=== PATIENT | male | born 1970 | race Two or more races ===

== ENCOUNTER 2024-07-21 10:32 | Emergency (ER) | payer MEDICAID, OTHER ==
[~2024-07-21] VITALS: Ht 175.3 cm; Wt 90.0 kg
--- NOTE | 2024-07-21 10:49 | ED.PDOC ---
GI ASSESSMENT HPI Comments 54 y.o male with PMHx of DM and HTN, presents to the ED via EMS for a chief complaint of epigastric pain that presented today at 0400. Patient describes pain as achy, non radiating, constant, and has no modifying factors. Patient denies any nausea, vomiting, diarrhea, fever, chills, or urinary symptoms. EMS report BG of 247 and stable vital signs. Time Seen by MD: 10:44 Reviewed Notes: Nurses Notes, Sfdc Architect Notes, Medications, Allergies Allergies: Coded Allergies: NO KNOWN ALLERGIES (Unverified , 07/21/24) Home Meds Active Scripts Pantoprazole Sodium Sesquihydr (Protonix) 40 Mg Tab, 40 MG PO DAILY, #30 TAB Prov:MARIA EUGENIA BRASWELL MD 07/21/24 Ondansetron Odt 4MG Tab (ZOFRAN PO) 4 Mg Tb, 4 MG PO Q8HP PRN for 5 Days, #15 TAB ODT TAB-DISSOLVE IN MOUTH, THEN SWALLOW Prov:MARIA EUGENIA BRASWELL MD 07/21/24 Information Source: Patient, Emergency Med Personnel Mode of Arrival: EMS Timing: Hours Duration: Since onset Prehospital treatment: Accucheck (247) Quality: Aching Vomitus: None Stool: Normal Severity: Moderate Recent: None Recent Hx of: None Pain Location: Epigastric Modifying Factors: Nothing Associated sign and symptoms: Abdominal Pain Past Medical History PAST MEDICAL HISTORY: DM, HTN Surgical History (Other): right knee replacement Family History Family History: Family hx of DM Social History Smoker: Non-Smoker Alcohol: Occasionally Drugs: Denies Drug Use Lives In: Home Constitutional: denies: chills, diaphoresis, fatigue, fever, malaise, sweats, weakness, others EENTM: denies: blurred vision, double vision, ear bleeding, ear discharge, ear drainage, ear pain, ear ringing, eye pain, eye redness, hearing loss, mouth pain, mouth swelling, nasal discharge, nose bleeding, nose congestion, nose pain, photophobia, tearing, throat pain, throat swelling, voice changes, others Respiratory: denies: cough, hemoptysis, orthopnea, SOB at rest, shortness of breath, SOB with excertion, stridor, wheezing, others Cardiovascular: denies: chest pain, dizzy spells, diaphoresis, Dyspnea on exertion, edema, irregular heart beat, left arm pain, lightheadedness, pal pitations, PND, syncope, others Gastrointestinal: reports: abdominal pain; denies: abdomen distended, blood streaked bowels, constipated, diarrhea, dysphagia, difficulty swallowing, hematemesis, melena, nausea, poor appetite, poor fluid intake, rectal bleeding, rectal pain, vomiting, others Genitourinary: denies: burning, dysuria, flank pain, frequency, hematuria, incontinence, penile discharge, penile sore, pain, testicle pain, testicle swell ing, urgency, others Neurological: denies: dizziness, fainting, headache, left sided numbness, left sided weakness, numbness, paresthesia, pre-existing deficit, right sided numbness, right sided weakness, seizure, speech problems, tingling, tremors, weakness, others Musculoskeletal: denies: back pain, gout, joint pain, joint swelling, muscle pain, muscle stiffness, neck pain, others Integumetry: denies: bruises, change in color, change in hair/nails, dryness, laceration, lesions, lumps, rash, wounds, others Allergic/Immunocompromised: denies: Difficulty Healing, Frequent Infections, Hives, Itching, others Hematologic/Lymphatic: denies: anemia, blood clots, easy bleeding, easy bruising, swollen glands, others Endocrine: denies: excessive hunger, excessive sweating, excessive thirst, excessive urination, flushing, intolerance to cold, intolerance to heat, unexplained weight gain, unexplained weight loss, others Psychiatric: denies: anxiety, bipolar disorder, depression, hopeless, panic disorder, schizophrenia, sleepless, suicidal, others All Other Systems: Reviewed and Negative Physical Exam General Appearance: No Apparent Distress HEENT: Normal ENT Inspection, Pharynx Normal, TMs Normal Neck: Full Range of Motion, Non-Tender, Normal, Normal Inspection Respiratory: Chest Non-Tender, Lungs Clear, No Accessory Muscle Use, No Respiratory Distress, Normal Breath Sounds Cardiovascular: No Edema, No JVD, No Murmur, No Gallop, Normal Peripheral Pulses, Regular Rate/Rhythm Breast Exam: Deferred Gastrointestinal: Epigastric, No Organomegaly, No Pulsatile Mass, Normal Bowel Sounds, Soft, Tenderness Genitalia: Deferred Pelvic: Deferred Rectal: Deferred Extremities: No calf tenderness, Normal capillary refill, Normal inspection, N ormal range of motion, Non-tender, No pedal edema Musculoskeletal : Apperance: Normal Neurologic: Alert, welder explosion II-XII nml as Tested, No Motor Deficits, Normal Affect, Normal Mood, No Sensory Deficits Cerebellar Function: Normal Reflexes: Normal Skin: Dry, Normal Color, Warm Lymphatic: No Adenopathy EKG EKG : Pulse Rate (adult): 78 Cardiac Rhythm: NSR Was a procedure done? Was a procedure done?: No GI differential Dx Differential Diagnosis: Cholangitis, Cholecystitis, Esophagitis, Gastritis/PUD, Gastroenteritis, Electrolyte Imbalance, Viral X-Ray, Labs, Meds, VS Vital Signs Date Time Temp Pulse Resp B/P (MAP) Pulse Ox O2 Delivery O2 Flow Rate FiO2 07/21/24 12:09 97.9 87 17 160/101 (120) 97 97.9 07/21/24 12:09 87 17 97 Room Air 07/21/24 10:49 78 07/21/24 10:44 78 07/21/24 10:40 97.9 81 18 165/93 (117) 98 Lab Test 07/21/24 11:04 Range/Units White Blood Count 11.5 H 4.4-10.8 10^3/uL Red Blood Count 5.17 4.5-5.90 10^6/uL Hemoglobin 16.0 13.5-17.5 g/dL Hematocrit 48.7 41.0-53.0 % Mean Corpuscular Volume 94.1 80.0-100.0 fL Mean Corpuscular Hemoglobin 31.0 28.0-32.0 pg Mean Corpuscular Hemoglobin Concent 32.9 32.0-36.0 g/dL Red Cell Distribution Width 13.3 11.8-14.3 % Platelet Count 175 140-450 10^3/uL Mean Platelet Volume 8.4 6.9-10.8 fL Neutrophils (%) (Auto) 94.4 H 37.0-80.0 % Lymphocytes (%) (Auto) 3.2 L 10.0-50.0 % Monocytes (%) (Auto) 2.3 0.0-12.0 % Eosinophils (%) (Auto) 0.0 0.0-7.0 % Basophils (%) (Auto) 0.1 0.0-2.0 % Neutrophils # (Auto) 10.8 H 1.6-8.6 10 ^3/uL Lymphocytes # (Auto) 0.4 0.4-5.4 10 ^3/uL Monocytes # (Auto) 0.3 0-1.3 10 ^3/uL Eosinophils # (Auto) 0 0-0.8 10 ^3/uL Basophils # (Auto) 0 0-0.2 10 ^3/uL Nucleated Red Blood Cells 0.0 % Sodium Level 141 136-145 mmol/L Potassium Level 4.3 3.5-5.1 mmol/L Chloride Level 106 98-107 mmol/L Carbon Dioxide Level 22 20-31 mmol/L Anion Gap 13 5-15 Blood Urea Nitrogen 13 9-23 mg/dL Creatinine 0.91 0.700-1.30 mg/dL Glomerular Filtration Rate Calc 100 >90 mL/min BUN/Creatinine Ratio 14.3 10.0-20.0 Serum Glucose 207 H 74-106 mg/dL Calcium Level 10.0 8.7-10.4 mg/dL Total Bilirubin 0.7 0.2-1.0 mg/dL Aspartate Amino Transferase (AST) 22 13-40 U/L Alanine Aminotransferase (ALT) 31 7-40 U/L Alkaline Phosphatase 68 46-116 U/L Total Protein 7.6 5.7-8.2 g/dL Albumin 4.8 3.2-4.8 g/dL Lipase 39 12-53 U/L Multiple real-time sonographic images of the abdomen were obtained. IMPRESSION: 1. No gallstones. 2. Hepatic steatosis. The CBC shows an elevated white blood cell count of 11.5 The rest of the CBC is within normal limits The chemistry panel is within normal limits The lipase is within normal limits At this time, the patient is being discharged The patient was given Protonix and Zofran The patient will return to the emergency department's condition worsens Images Reviewed?: Images reviewed and evaluated by me Time of 1ST Reevaluation: 10:49 Reevaluation 1ST: Unchanged Patient Education/Counseling: Diagnosis, Treatment, Prognosis Family Education/Counseling: No Family Present Departure 1 Departure Time of Disposition: 12:46 Impression: Primary Impression: Acute gastritis Qualified Codes: K29.00 - Acute gastritis without bleeding Disposition: 01 HOME / SELF CARE / HOMELESS Condition: Fair e-Prescriptions Pantoprazole Sodium Sesquihydr (Protonix) 40 Mg Tab 40 MG PO DAILY, #30 TAB Prov: MARIA EUGENIA BRASWELL MD 07/21/24 Ondansetron Odt 4MG Tab (ZOFRAN PO) 4 Mg Tb 4 MG PO Q8HP PRN for 5 Days, #15 TAB ODT TAB-DISSOLVE IN MOUTH, THEN SWALLOW Prov: MARIA EUGENIA BRASWELL MD 07/21/24 Discharged With: Self Critical Care Note Critical Care Time?: No Stability Stability form required: No I personally scribed for MARIA EUGENIA BRASWELL MD ([email or web address]) on 07/21/24 at 10:49. Elec tronically submitted by Shannon Buchanan ([facility]). I personally scribed for MARIA EUGENIA BRASWELL MD ([email or web address]) on 07/21/24 at 11:19. Electr onically submitted by Shannon Buchanan ([facility]). MARIA EUGENIA BRASWELL MD Jul 21, 2024 10:49
--- NOTE | 2024-07-21 11:17 | DVH ---
INDICATION: pain TECHNIQUE: Multiple real-time sonographic images of the abdomen were obtained. COMPARISON: None FINDINGS: The liver is increased in echogenicity. The liver measures 14.3 cm. No intrahepatic biliar y ductal dilatation is noted. The gallbladder wall measures 0.2 cm and is unremarkable. No gallstones or sludge is seen. The com mon duct measures 0.5 cm and is unremarkable. No pericholecystic fluid is noted. Negative sonographi c Grijalva sign. The right kidney measures 10.6 cm. No hydronephrosis. The pancreas is not well visualized due to obscuration from bowel gas. The visualized portions of the IVC and aorta are grossly unremarkable. IMPRESSION: 1. No gallstones. 2. Hepatic steatosis.
[2024-07-21 11:26] LABS: Basophils # (auto) 0 10 ^3/uL (0-0.2); Basophils % (auto) 0.1 % (0.0-2.0); Eosinophils # (auto) 0 10 ^3/uL (0-0.8); Hematocrit 48.7 % (41.0-53.0); Lymphocytes # (auto) 0.4 10 ^3/uL (0.4-5.4); Lymphocytes % (auto) 3.2 % (10.0-50.0); Mean Corpuscular Hgb Conc. 32.9 g/dL (32.0-36.0); Mean Corpuscular Volume 94.1 fL (80.0-100.0); Monocytes # (auto) 0.3 10 ^3/uL (0-1.3); Monocytes % (auto) 2.3 % (0.0-12.0); Neutrophils # (auto) 10.8 10 ^3/uL (1.6-8.6); Neutrophils % (auto) 94.4 % (37.0-80.0); Platelet Count (auto) 175 10^3/uL (140-450); Red Blood Cells 5.17 10^6/uL (4.5-5.90); Red Cell Distribution Width 13.3 % (11.8-14.3); White Blood Cell 11.5 10^3/uL (4.4-10.8)
[2024-07-21 12:13] LABS: Alanine Aminotransferase 31 U/L (7-40); Albumin 4.8 g/dL (3.2-4.8); Alkaline Phosphatase 68 U/L (46-116); Anion Gap 13 (5-15); Aspartate Aminotransferase 22 U/L (13-40); BUN/Creatinine Ratio 14.3 (10.0-20.0); Blood Urea Nitrogen 13 mg/dL (9-23); Carbon Dioxide 22 mmol/L (20-31); Chloride 106 mmol/L (98-107); Lipase 39 U/L (12-53); Potassium 4.3 mmol/L (3.5-5.1); Sodium 141 mmol/L (136-145)
[2024-07-21 12:14] LABS: Total Protein 7.6 g/dL (5.7-8.2)
[2024-07-21 12:17] LABS: Glucose 207 mg/dL (74-106)
[2024-07-21 12:28] LABS: Bilirubin, Total 0.7 mg/dL (0.2-1.0)
[2024-07-21] MEDS ORDERED: ZOFR4T PO (12:43)
[2024-07-21] MEDS ORDERED: PANT40TA2 PO (12:43)
[2024-07-21] MEDS: ONDANSETRON HCL 4 MG/2 ML VIAL IV ONE (12:46)
[2024-07-21] MEDS: PANTOPRAZOLE 40 MG/10 ML VIAL INJ IV ONE (12:46)
[2024-07-21] MEDS: MORPHINE SULFATE 4 MG/ML SYR/VIAL IV ONE (12:47)
[2024-07-21] MEDS: SODIUM CHLORIDE 0.9% 1,000 ML IVB ONE (12:47)
[2024-07-21 13:42] VITALS: BP 174/97; PULSE 85; RESP 20; TEMP 98.6; O2SAT 96
--- NOTE | 2024-07-22 12:26 | ECG ---
[facility] Test Date: 2024-07-21 Test Time: 10:44:35 Pat Name: CORINNA GANT Department: ER Room: Gender: M Talent Rep: : 1970 Requested By: MARIA EUGENIA BRASWELL Order Number: [id number] Reading MD: Dave Joseph Measurements Intervals [place] Rate: 78 P: 48 WI: 160 QRS: 18 QRSD: 89 T: 47 QT: 401 QTc: 457 Interpretive Statements Sinus rhythm Electronically Signed On 07-22-2024 17:49:07 PST by Dave Joseph Please click the below link to view image of tracing.
== END 2024-07-21 13:56 | disposition home or self-care (01) ==
LOC: ER 10:32 → EDBD 10:32 → ER 13:51
DX: K29.00 Acute gastritis without bleeding (principal); I10 Essential (primary) hypertension; E11.9 Type 2 diabetes mellitus without complications; Z79.899 Other long term (current) drug therapy
CPT/HCPCS: 36415; 76705; 80053; 83690; 85025; 93005; 96361; 96374; 96375; 99285; J2270; J2405; J2470; J7030

== ENCOUNTER 2024-07-21 20:33 | Inpatient (IN) | payer MEDICAID ==
[~2024-07-21] VITALS: Ht 170.2 cm; Wt 86.3 kg
[~2024-07-21 20:33] MED LIST: PANT40TA2 PO; ZOFR4T PO
--- NOTE | 2024-07-21 21:09 | ED.PDOC ---
GI ASSESSMENT HPI Comments Jos Mckay is a 54-year-old male patient who presents to ED with chief complaint of continuous oppressive epigastric pain which started today at 4:00 a.m. in functional class IV (it woke him up) intensity 03/27 associated with hypertension (approximately 180 mmHg systolic), prompted his visit to ER earlier today where he was diagnosed with gastritis and prescribed Zofran and pantoprazole with no symptomatic relief. Patient also reports reduced food intake because of the pain, but denies nausea and vomiting. Denies palpitation, syncope, dyspnea, chest pain, nausea, vomiting, diarrhea, constipation, sick contacts, recent travel, unintentional weight loss and motor or sensory deficits. Past medical history: Diabetes, hypertension Surgical history: Right knee surgery Family history: Noncontributory Social history: Lives in [place] with . Drinks four beers a day during the weekends. Denies current tobacco and other drug abuse Allergies: Denies Home medication: Just takes pantoprazole and Zofran from today. Chief Complaint: Abdominal Pain Time Seen by MD: 20:39 Allergies: Coded Allergies: NO KNOWN ALLERGIES (Unverified , 07/21/24) Home Meds Active Scripts Pantoprazole Sodium Sesquihydr (Protonix) 40 Mg Tab, 40 MG PO DAILY, #30 TAB Prov:MARIA EUGENIA BRASWELL MD 07/21/24 Ondansetron Odt 4MG Tab (ZOFRAN PO) 4 Mg Tb, 4 MG PO Q8HP PRN for 5 Days, #15 TAB ODT TAB-DISSOLVE IN MOUTH, THEN SWALLOW Prov:MARIA EUGENIA BRASWELL MD 07/21/24 Mode of Arrival: Ambulatory Past Medical History PAST MEDICAL HISTORY: DM, HTN Family History Family History: Family hx of DM Social History Smoker: Non-Smoker Alcohol: Occasionally Drugs: Denies Drug Use Lives In: Home Physical Exam General Appearance: Moderate Distress, Normal HEENT: Normal ENT Inspection, Pharynx Normal, TMs Normal Neck: Full Range of Motion, Non-Tender, Normal, Normal Inspection Respiratory: Chest Non-Tender, Lungs Clear, No Accessory Muscle Use, No Respiratory Distress, Normal Breath Sounds Cardiovascular: No Edema, No JVD, No Murmur, No Gallop, Normal Peripheral Pulses, Regular Rate/Rhythm Breast Exam: Deferred Gastrointestinal: Epigastric, No Organomegaly, No Pulsatile Mass, Normal Bowel Sounds, Tenderness Genitalia: Deferred Pelvic: Deferred Rectal: Deferred Extremities: No calf tenderness, Normal capillary refill, Normal inspection, Normal range of motion, Non-tender, No pedal edema Neurologic: Alert, repair table operator II-XII nml as Tested, No Motor Deficits, Normal Affect, Normal Mood, No Sensory Deficits Cerebellar Function: Normal Reflexes: Normal Skin: Dry, Normal Color, Warm Lymphatic: No Adenopathy EKG EKG : Comments Sinus rhythm at 90 beats per minute, no ST alteration, narrow QRS Was a procedure done? Was a procedure done?: No GI differential Dx Differential Diagnosis: Appendicitis, Angina/KS, Aortic dissection, Cholecystitis, Diverticular disease, Esophagitis, Gastritis/PUD, Pancreatitis, Anemia, Esophageal Varicies, Stress Ulcer, Kidney Stone X-Ray, Labs, Meds, VS Vital Signs Date Time Temp Pulse Resp B/P (MAP) Pulse Ox O2 Delivery O2 Flow Rate FiO2 07/21/24 20:54 90 07/21/24 20:48 98.8 97 20 184/94 (124) 98 X-Ray, Labs, Meds, VS Comment Ordered chest x-ray and abdomen and pelvis CT Time of 1ST Reevaluation: 22:24 Reevaluation 1ST: Unchanged Patient Education/Counseling: Diagnosis, Treatment, Prognosis Family Education/Counseling: Diagnosis, Treatment, Prognosis Departure 1 Departure Time of Disposition: 22:24 Impression: Primary Impression: Abdominal pain Additional Impressions: Gastroenteritis Small bowel obstruction Disposition: ADMITTED INPATIENT Condition: Serious Additional Instructions: Did not complete laboratory workup since patient already had completed that during the morning in his previous visit to the ER. Ordered chest x-ray which showed no intrathoracic acute abnormality. Abdomen and pelvis CT shows signs suggestive of gastroenteritis versus small-bowel obstruction. We will admit patient for further evaluation. Critical Care Note Critical Care Time?: No Stability Stability form required: No Heart Score Heart Score: Heart Score Response (Comments) Value History N/A 0 EKG N/A 0 Age N/A 0 Risk Factors N/A 0 Troponin N/A 0 Total 0 BENNIE PARADA RESIDENT Jul 21, 2024 21:09
--- NOTE | 2024-07-21 21:10 | DVH ---
CHEST RADIOGRAPH Indication: HTN Technique: Single frontal view of the chest was obtained Comparison: None FINDINGS: Lines and Tubes: None Lungs: No focal consolidation. Pleura: No effusion. No pneumothorax. Cardiomediastinal contours: Unremarkable Bones: No acute osseous abnormality. IMPRESSION: 1. No acute cardiopulmonary disease.
[2024-07-21] MEDS ORDERED: PANTOPRAZOLE 40 MG/10 ML VIAL INJ IV ONE (21:15)
--- NOTE | 2024-07-21 21:39 | DVH ---
Exam: CT CT AB PEL WO CON-NO ORAL OR IV History: Abdominal pain Comparison Study: None available at time of dictation. TECHNIQUE: Multidetector CT of the abdomen was performed from lung bases to pubic symphysis. Imaging was performed without IV contrast. Axial, coronal and sagittal multiplanar reformats were obtained fr om the axial data set by the technologist. Radiation Dose Information: CT Dose: CTDI volume is 12.11 mGy. Dose-length product is 664.33 mGy*cm FINDINGS: Evaluation of solid organs is limited due to lack of intravenous contrast use. Findings: Lung Bases: No acute or significant lung base finding. Normal heart size. No pleural or pericardial effusion. Liver: The liver is normal in size. No focal lesions. Gallbladder and Biliary Tree: Unremarkable Spleen: Unremarkable Pancreas: The pancreas is grossly normal in appearance. Adrenal Glands: Unremarkable Kidneys: Kidneys are grossly normal without calculi or hydronephrosis. Bladder: Grossly unremarkable for degree of distention. Bowel: The stomach is fluid-filled.. Small bowel and colon are normal in caliber and distribution. Sm all bowel is mildly distended with fluid measuring 323.7 cm. Findings may represent gastroenteritis o r developing small bowel obstruction. The appendix is not visualized; however, no secondary findings of acute appendicitis identified. Ascites: Absent Lymphadenopathy: No mesenteric, retroperitoneal or periportal lymphadenopathy. Abdominal Wall and Mesentery: Unremarkable. Vasculature: The visualized abdominal aorta is normal in size and caliber. Evaluation of abdominal a nd pelvic vessels is limited due to lack of intravenous contrast. Pelvic Organs: Unremarkable Musculoskeletal: No aggressive focal bony lesions, acute fractures or dislocation. Soft tissues: Unremarkable IMPRESSION: 1. Findings suggesting either gastroenteritis or developing small bowel obstruction. 2. No calcified gallstones 3. No nephrolithiasis or hydronephrosis. 4. No abnormally distended colon. Radiation optimization: All CT scans at this facility use at least one of these dose optimization te chniques: automated exposure control mA and/or kV adjustment per patient size (includes targeted exa ms where dose is matched to clinical indication) or iterative reconstruction.
[2024-07-21] MEDS ORDERED: PANTOPRAZOLE 40 MG/10 ML VIAL INJ IV SCH (22:00)
[2024-07-21] MEDS: SODIUM CHLORIDE 0.9% 1,000 ML IV SCH (22:30)
--- NOTE | 2024-07-21 23:07 | DVHHP2 ---
History of Present Illness Reason for Visit: Abdominal pain History of Present Illness 54-year-old male presents for evaluation of abdominal pain. Patient was seen earlier this morning with complaints of sharp mid abdomen pain that is constant. Denies nausea or vomiting. He was sent home with a diagnosis of gastroenteritis and a prescription. He reports his symptoms have not subsided therefore he returned for further evaluation. Past Medical History Diabetes mellitus and hypertension Past Surgical History Denies Family History Noncontributory Smoke: No ALCOHOL: occassional Drugs: None Lives: with Family Review of Systems Review of Systems Review of systems are currently negative otherwise addressed in HPI. Allergies: Coded Allergies: NO KNOWN ALLERGIES (Unverified , 07/21/24) Medications Current Medications Medications Dose Ordered Sig/Malachi Route Start Time Stop Time Status Last Admin Dose Admin Sodium Chloride 1,000 ml @ 100 mls/hr Q10H IV 07/21/24 22:30 Pantoprazole Sodium 40 mg DAILY IV 07/21/24 23:00 UNV Ondansetron HCl 4 mg Q4HP PRN IV 07/21/24 23:00 UNV Morphine Sulfate 2 mg Q4HPRN PRN IV 07/21/24 23:00 UNV Exam Vital Signs Vital Signs Date Time Temp Pulse Resp B/P (MAP) Pulse Ox O2 Delivery O2 Flow Rate FiO2 07/21/24 20:54 90 07/21/24 20:48 98.8 20 184/94 (124) 98 Exam Gen: 54-year-old male in mild distress. Skin: Warm, dry, normal color and texture, no rash. HEENT: Normocephalic atraumatic, mucous membranes moist and pink. Neck: Cervical and supraclavicular nodes normal without enlargement, trachea is midline, thyroid gland is normal without masses. Pulmonary: Clear to auscultation and percussion bilaterally. Cardiac: Regular rate and rhythm. No murmur Abdomen: Soft, mid abdominal pain, nondistended, bowel sounds present all 4 quadrants, no guarding, no rigidity, no organomegaly. Extremities: No cyanosis, clubbing, no edema Neuro: Cranial nerves II through XII grossly intact, normal affect and speech, no focal motor deficits. Labs/Xrays ORDERING PHYSICIAN: BENNIE PARADA RESIDENT PROCEDURE(s): ABPL - CT AB PEL WO CON-NO ORAL OR IV REASON: Abdominal pain ORDER NUMBER(s): [id number], ACCESSION NUMBER(s): [id number] Exam: CT CT AB PEL WO CON-NO ORAL OR IV History: Abdominal pain Comparison Study: None available at time of dictation. TECHNIQUE: Multidetector CT of the abdomen was performed from lung bases to pubic symphysis. Imaging was performed without IV contrast. Axial, coronal and sagittal multiplanar reformats were obtained from the axial data set by the technologist. Radiation Dose Information: CT Dose: CTDI volume is 12.11 mGy. Dose-length product is 664.33 mGy*cm FINDINGS: Evaluation of solid organs is limited due to lack of intravenous contrast use. Findings: Lung Bases: No acute or significant lung base finding. Normal heart size. No pleural or pericardial effusion. Liver: The liver is normal in size. No focal lesions. Gallbladder and Biliary Tree: Unremarkable Spleen: Unremarkable Pancreas: The pancreas is grossly normal in appearance. Adrenal Glands: Unremarkable Kidneys: Kidneys are grossly normal without calculi or hydronephrosis. Bladder: Grossly unremarkable for degree of distention. Bowel: The stomach is fluid-filled.. Small bowel and colon are normal in caliber and distribution. Small bowel is mildly distended with fluid measuring 323.7 cm. Findings may represent gastroenteritis or developing small bowel obstruction. The appendix is not visualized; however, no secondary findings of acute appendicitis identified. Ascites: Absent Lymphadenopathy: No mesenteric, retroperitoneal or periportal lymphadenopathy. Abdominal Wall and Mesentery: Unremarkable. Vasculature: The visualized abdominal aorta is normal in size and caliber. Evaluation of abdominal and pelvic vessels is limited due to lack of intravenous contrast. Pelvic Organs: Unremarkable Musculoskeletal: No aggressive focal bony lesions, acute fractures or dislocation. Soft tissues: Unremarkable IMPRESSION: 1. Findings suggesting either gastroenteritis or developing small bowel obstruction. 2. No calcified gallstones 3. No nephrolithiasis or hydronephrosis. 4. No abnormally distended colon. Radiation optimization: All CT scans at this facility use at least one of these dose optimization techniques: automated exposure control mA and/or kV adjustment per patient size (includes targeted exams where dose is matched to clinical indication) or iterative reconstruction. Assessment/Plan Assessment/Plan Assessment Acute abdominal pain ? Small-bowel obstruction Diabetes mellitus Plan Admit the patient to [facility] to the hospitalist Surgical consultation NPO Small-bowel follow-through pending Pain management Maintenance IV fluids Continue treatment per orders. Plan discussed with: Patient My Orders Orders - CANDELARIA ELLIS Procedure Category Date Status Time Pantoprazole PHA 07/21/24 Logged (Protonix) 23:00 * Surgical Consult CONS 07/21/24 Transmitted Small Bowel Series-W XY 07/21/24 Logged Gastrogra 22:59 Sodium Chloride 0.9% PHA 07/21/24 Logged 23:00 Admit ADMIT 07/21/24 Transmitted 22:59 Ondansetron Hcl PHA 07/21/24 Logged (Zofran) 23:00 Complete Blood Count LAB 07/22/24 Verified 04:00 Comprehensive LAB 07/22/24 Verified Metabolic Panel 04:00 Condition: Stable SARI 07/21/24 In Process 22:59 Bedrest With Bathroom SARI 07/21/24 In Process Privileg 22:59 Morphine Sulfate PHA 07/21/24 Logged Injection 23:00 Glucose Blood PHA 07/22/24 Verified (Accu-Chek Comfort 00:00 Mild Sliding Scale PHA 07/22/24 Verified Npo - Q6hr 00:00 Dextrose 50% Syringe PHA 07/21/24 Verified 23:15 Date of Service: Jul 21, 2024 Billing Provider: CANDELARIA ELLIS Common Visit Codes: [id number] INP/OBS CARE (HIGH) CANDELARIA ELLIS Jul 21, 2024 23:07
[2024-07-21] MEDS ORDERED: DEXTROSE (50%) 50ML SYRG IV PRN (23:15)
[2024-07-22 00:11] LABS: Basophils # (auto) 0.1 10 ^3/uL (0-0.2); Basophils % (auto) 0.3 % (0.0-2.0); Eosinophils # (auto) 0 10 ^3/uL (0-0.8); Eosinophils % (auto) 0.3 % (0.0-7.0); Hematocrit 47.1 % (41.0-53.0); Hemoglobin 16.7 g/dL (13.5-17.5); Lymphocytes # (auto) 0.5 10 ^3/uL (0.4-5.4); Lymphocytes % (auto) 3.2 % (10.0-50.0); Mean Corpuscular Hemoglobin 31.5 pg (28.0-32.0); Mean Corpuscular Hgb Conc. 35.3 g/dL (32.0-36.0); Monocytes # (auto) 0.8 10 ^3/uL (0-1.3); Monocytes % (auto) 5.3 % (0.0-12.0); Neutrophils # (auto) 14.2 10 ^3/uL (1.6-8.6); Neutrophils % (auto) 90.9 % (37.0-80.0); Platelet Count (auto) 248 10^3/uL (140-450); Red Cell Distribution Width 13.2 % (11.8-14.3); White Blood Cell 15.6 10^3/uL (4.4-10.8)
[2024-07-22 00:28] LABS: Alanine Aminotransferase 29 U/L (7-40); Alkaline Phosphatase 63 U/L (46-116); Anion Gap 15 (5-15); Aspartate Aminotransferase 21 U/L (13-40); BUN/Creatinine Ratio 15.9 (10.0-20.0); Blood Urea Nitrogen 17 mg/dL (9-23); Calcium 9.6 mg/dL (8.7-10.4); Chloride 105 mmol/L (98-107); Potassium 3.6 mmol/L (3.5-5.1); Sodium 139 mmol/L (136-145)
[2024-07-22 00:29] LABS: Total Protein 7.6 g/dL (5.7-8.2)
[2024-07-22 00:30] VITALS: PULSE 82; RESP 26; O2SAT 96
[2024-07-22 00:31] LABS: Albumin 4.8 g/dL (3.2-4.8); Bilirubin, Total 1.4 mg/dL (0.2-1.0); Carbon Dioxide 19 mmol/L (20-31); Glucose 254 mg/dL (74-106)
[2024-07-22] MEDS: PANTOPRAZOLE 40 MG/10 ML VIAL INJ IV SCH (00:41)
[2024-07-22] MEDS: ONDANSETRON HCL 4 MG/2 ML VIAL IV ONE (00:41)
[2024-07-22] MEDS: MORPHINE SULFATE INJ 2 MG/ml SYRG IV PRN (00:42)
[2024-07-22] MEDS: SODIUM CHLORIDE 0.9% 1,000 ML IV ONE (00:53)
[2024-07-22] MEDS: InsuLIN REG 1unit/0.01ml Soln (100units/ml) SC SCH ×2 (01:07→13:05)
[2024-07-22] MEDS: ONDANSETRON HCL 4 MG/2 ML VIAL IV PRN (03:47)
--- NOTE | 2024-07-22 04:09 | DVH ---
CHEST RADIOGRAPH Indication: NG TUBE Technique: Single frontal view of the chest was obtained Comparison: XY CHEST XRAY 1 VIEW on DOS: 07/21/24 FINDINGS: Lines and Tubes: NG tube in stomach Lungs: No focal consolidation. Pleura: No effusion. No pneumothorax. Cardiomediastinal contours: Unremarkable Bones: No acute osseous abnormality. IMPRESSION: NG tube in stomach. No acute cardiopulmonary disease.
[2024-07-22] MEDS: HYDROMORPHONE HCL 1 MG/ML INJ IV ONE (05:46)
[2024-07-22] MEDS: cefTRIAXone 1GM/50ML D5W 50 ML IV SCH (05:48)
[2024-07-22 06:37] LABS: Basophils # (auto) 0 10 ^3/uL (0-0.2); Basophils % (auto) 0.1 % (0.0-2.0); Eosinophils # (auto) 0 10 ^3/uL (0-0.8); Hematocrit 44.7 % (41.0-53.0); Hemoglobin 15.7 g/dL (13.5-17.5); Lymphocytes # (auto) 0.3 10 ^3/uL (0.4-5.4); Lymphocytes % (auto) 2.3 % (10.0-50.0); Mean Corpuscular Hemoglobin 31.2 pg (28.0-32.0); Mean Corpuscular Volume 89.2 fL (80.0-100.0); Monocytes # (auto) 0.8 10 ^3/uL (0-1.3); Monocytes % (auto) 6.1 % (0.0-12.0); Neutrophils # (auto) 11.9 10 ^3/uL (1.6-8.6); Neutrophils % (auto) 91.5 % (37.0-80.0); Platelet Count (auto) 221 10^3/uL (140-450); Red Blood Cells 5.02 10^6/uL (4.5-5.90)
[2024-07-22 06:47] LABS: Alanine Aminotransferase 26 U/L (7-40); Albumin 4.5 g/dL (3.2-4.8); Alkaline Phosphatase 58 U/L (46-116); Anion Gap 11 (5-15); Aspartate Aminotransferase 20 U/L (13-40); BUN/Creatinine Ratio 17.1 (10.0-20.0); Blood Urea Nitrogen 18 mg/dL (9-23); Calcium 9.3 mg/dL (8.7-10.4); Carbon Dioxide 24 mmol/L (20-31); Chloride 105 mmol/L (98-107); Sodium 140 mmol/L (136-145); Total Protein 7.1 g/dL (5.7-8.2)
--- NOTE | 2024-07-22 06:52 | DVHINCON2 ---
Consultation - Surgical Date Seen: Jul 22, 2024 Referring Physician Referring Physician ER Reason for Consultation ABDOMINAL PAIN History of Present Illness History of Present Illness 54-year-old male patient who presents to ED with chief complaint of epigastric pain which started today at 4:00 a.m. , prompted his visit to ER earlier today where he was diagnosed with gastritis and prescribed Zofran and pantoprazole with no symptomatic relief. Patient also reports reduced food intake because of the pain, but denies nausea and vomiting. The patient had an NG-tube placed minimal output. Last bowel movement was yesterday. No fever. No prior abdominal surgery. Past Medical/Surgical History Past Medical/Surgical History Diabetes hypertension Family and Social History Family and Social History drinks proximally 6 pack weekends. Allergies and medications Allergies: Coded Allergies: NO KNOWN ALLERGIES (Unverified , 07/21/24) Home Meds Active Scripts Pantoprazole Sodium Sesquihydr (Protonix) 40 Mg Tab, 40 MG PO DAILY, #30 TAB Prov:MARIA EUGENIA BRASWELL MD 07/21/24 Ondansetron Odt 4MG Tab (ZOFRAN PO) 4 Mg Tb, 4 MG PO Q8HP PRN for 5 Days, #15 TAB ODT TAB-DISSOLVE IN MOUTH, THEN SWALLOW Prov:MARIA EUGENIA BRASWELL MD 07/21/24 Review of systems Review of Systems: HEENT:Normal, CVS:Normal, RESPIRATORY:Normal, GI:Normal, :Normal, MSK:Normal, NEURO:Normal Examination Vital signs Vital Signs Date Time Temp Pulse Resp B/P (MAP) Pulse Ox O2 Delivery O2 Flow Rate FiO2 07/22/24 06:00 92 17 147/95 (112) 95 07/22/24 00:30 Room Air* 0 21 21 07/21/24 20:48 98.8 Medications Current Medications Medications (Trade) Dose Ordered Sig/Malachi Route PRN Reason Start Time Stop Time Status Last Admin Pantoprazole Sodium (Protonix) 40 mg BID IV 07/21/24 22:00 07/21/24 23:03 DC Sodium Chloride 1,000 ml @ 100 mls/hr Q10H IV 07/21/24 22:30 Pantoprazole Sodium (Protonix) 40 mg DAILY IV 07/21/24 23:00 07/22/24 00:41 Ondansetron HCl (Zofran) 4 mg Q4HP PRN IV NAUSEA / VOMITING 07/21/24 23:00 07/22/24 03:47 Morphine Sulfate 2 mg Q4HPRN PRN IV SEVERE PAIN (7-10 PAIN SCALE) 07/21/24 23:00 07/22/24 04:43 Diagnostic Test (Pha) (Accu-Chek Comfort Curve T) 1 strip Q6HR 07/22/24 00:00 07/22/24 05:57 Insulin Human Regular (InsuLIN R) Q6HR SC 07/22/24 00:00 07/22/24 06:00 Dextrose 50 ml UD PRN IV Blood Sugar LESS THAN 60 07/21/24 23:15 Ceftriaxone Sodium 50 ml @ 100 mls/hr DAILY@09 IV 07/22/24 05:00 07/22/24 05:48 Laboratory Labs Test 07/22/24 05:54 07/22/24 05:35 Range/Units POC Glucose 280 H 70-106 mg/dl White Blood Count 13.0 H 4.4-10.8 10^3/uL Red Blood Count 5.02 4.5-5.90 10^6/uL Hemoglobin 15.7 13.5-17.5 g/dL Hematocrit 44.7 41.0-53.0 % Mean Corpuscular Volume 89.2 80.0-100.0 fL Mean Corpuscular Hemoglobin 31.2 28.0-32.0 pg Mean Corpuscular Hemoglobin Concent 35.0 32.0-36.0 g/dL Red Cell Distribution Width 13.0 11.8-14.3 % Platelet Count 221 140-450 10^3/uL Mean Platelet Volume 7.9 6.9-10.8 fL Neutrophils (%) (Auto) 91.5 H 37.0-80.0 % Lymphocytes (%) (Auto) 2.3 L 10.0-50.0 % Monocytes (%) (Auto) 6.1 0.0-12.0 % Eosinophils (%) (Auto) 0.0 0.0-7.0 % Basophils (%) (Auto) 0.1 0.0-2.0 % Neutrophils # (Auto) 11.9 H 1.6-8.6 10 ^3/uL Lymphocytes # (Auto) 0.3 L 0.4-5.4 10 ^3/uL Monocytes # (Auto) 0.8 0-1.3 10 ^3/uL Eosinophils # (Auto) 0 0-0.8 10 ^3/uL Basophils # (Auto) 0 0-0.2 10 ^3/uL Nucleated Red Blood Cells 0.0 % Examination: GENERAL:Normal, HEENT:Normal, NECK:Normal, LUNGS:Normal, CVS:Normal, ABDOMEN:Abnormal (Mild epigastric tenderness no rebound no guarding. NG tube in place no drainage), MSK:Normal, SKIN:Normal Problem List/Assessment/Plan Problems: (1) Gastroenteritis (2) Small bowel obstruction Assessment and Plan Epigastric pain CT scan consistent with gastroenteritis versus early small bowel obstruction. Continue NPO NG tube Control fluids and electrolytes. GI evaluation. Plan discussed with Plan discussed with: Patient Visit Coding Surgery Date of Service if different f: Jul 22, 2024 Billing Provider: GISELE WHIPPLE Jr., MD Surgery Visit Codes: 90632 - INP CONSULT <80 MIN GISELE WHIPPLE Jr., MD Jul 22, 2024 06:52
[2024-07-22 06:55] LABS: Bilirubin, Total 1.5 mg/dL (0.2-1.0); Glucose 232 mg/dL (74-106)
[2024-07-22] MEDS: GASTROGRAFIN 120 ML SOL ONE (10:36)
[2024-07-22] MEDS ORDERED: DEXTROSE (50%) 50ML SYRG IV PRN (10:45)
--- NOTE | 2024-07-22 12:23 | ECG ---
[facility] Test Date: 2024-07-21 Test Time: 20:54:27 Pat Name: CORINNA GANT Department: ED Room: 0288 Gender: M Scale Agent: JOSELINE : 1970 Requested By: BENNIE PARADA Order Number: [id number] Reading MD: Dave Joseph Measurements Intervals [place] Rate: 90 P: 64 MD: 158 QRS: 41 QRSD: 85 T: 40 QT: 377 QTc: 462 Interpretive Statements Sinus rhythm Probable left atrial enlargement Electronically Signed On 07-22-2024 17:50:55 PST by Dave Joseph Please click the below link to view image of tracing.
[2024-07-22 12:50] LABS: Opiate Scree,Urine Pos (NEGATIVE)
[2024-07-22 13:00] LABS: Amphetamine Screen, Urine Neg (NEGATIVE); Barbiturate Scree,Urine Neg (NEGATIVE); Benzodiazephine Screen, Urine Neg (NEGATIVE); Cannabinoid Screen, Urine Neg (NEGATIVE); Cocaine Screen, Urine Neg (NEGATIVE); Phencyclidine Screen, Urine Neg (NEGATIVE)
[2024-07-22] MEDS: ACCU-CHEK COMFORT CURVE STRIP VI SCH ×2 (13:08)
--- NOTE | 2024-07-22 13:31 | DVH ---
Procedure: XY SMALL BOWEL SERIES-W GASTROGRA Reason for study/Clinical History: SBO Comparison Study: None available at time of dictation. Technique: Single contrast small bowel series performed. FINDINGS/IMPRESSION: Initial shot polisher and inspector view of the abdomen and pelvis appears demonstrates nonspecific bowel-gas pattern. Contrast is identified within the colon by 1 hour. This represents a normal small bowel transit time .
[2024-07-22 14:40] VITALS: BP 152/88; PULSE 86; RESP 17; TEMP 97.6; O2SAT 95
--- NOTE | 2024-07-22 14:59 | DVHPNRES ---
Progress Note Date Seen: Jul 22, 2024 Resident Creating Document: SIMONE COX RESIDENT Medical Necessity Reason Pt with a Central, PICC or Fol: No Subjective Review of Systems This is a 54 year old male with past medical history of hypertension, type 2 diabetes mellitus presented to the ED with a chief complaint of abdominal pain since 4:00 a.m. prior to this admission. According to the patient he 1st came to the ER with the abdominal pain and was prescribed Zofran but when he went home the symptom progressively getting worse that prompted this visit. Abdominal pain is colicky in nature, 8/10 constant and diffuse throughout the abdomen without any associated aggravating or relieving factors and not associated with nausea or vomiting and his last bowel movement was 1 day ago before coming to the hospital and was normal. Patient was examined on the bedside. He is alert, oriented x3. Complaint of mild abdominal pain and bloating. No other active complaints Constitutional: No: Fever, Chills, Sweats, Weakness, Malaise, Other Eyes: No: Pain, Vision change, Conjunctivae inflammation, Eyelid inflammation, Other, Redness ENT: No: Ear pain, Ear discharge, Nose pain, Nose discharge, Nose congestion, Mouth pain, Mouth swelling, Throat pain, Throat swelling, Other Respiratory: Shortness of breath, improving No: Cough, Dry,Wheezing, Hemoptysis, Pleuritic Pain, Sputum, Wheezing, Other Cardiovascular: No: Chest Pain, Palpitations, Orthopnea, Paroxysmal Noc. Dyspnea, Edema, Lt Headedness, Other Gastrointestinal: Abdominal Pain No: Nausea, Vomiting,, Diarrhea, Constipation, Melena, Hematochezia, Other Musculoskeletal: No: other, neck pain, shoulder pain, arm pain, back pain, hand pain, leg pain, foot pain Neurological:; No: Weakness, Numbness, Incoordination, Change in speech, Confusion, Seizures Objective vital signs Vital Sign Date Time Temp Pulse Resp B/P (MAP) Pulse Ox O2 Delivery O2 Flow Rate FiO2 07/22/24 13:00 84 17 117/90 (99) 92 07/22/24 07:35 98.2 98.2 07/22/24 07:35 Room Air* 0 21 medications Current Medications Medications Dose Ordered Sig/Malachi Route Start Time Stop Time Status Last Admin Dose Admin Sodium Chloride 1,000 ml @ 100 mls/hr Q10H IV 07/21/24 22:30 Pantoprazole Sodium 40 mg DAILY IV 07/21/24 23:00 07/22/24 10:22 40 MG Ondansetron HCl 4 mg Q4HP PRN IV 07/21/24 23:00 07/22/24 09:52 4 MG Morphine Sulfate 2 mg Q4HPRN PRN IV 07/21/24 23:00 07/22/24 09:52 2 MG Ceftriaxone Sodium 50 ml @ 100 mls/hr DAILY@09 IV 07/22/24 05:00 07/22/24 08:37 100 MLS/HR Metronidazole 100 ml @ 100 mls/hr Q8HR IV 07/22/24 14:00 Diagnostic Test (Pha) 1 strip ACHS 07/22/24 11:30 07/22/24 13:08 1 STRIP Insulin Human Regular ACHS SC 07/22/24 11:30 07/22/24 13:05 4 UNITS Dextrose 50 ml UD PRN IV 07/22/24 10:45 Examination Physical examination: General Appearance: Alert, Oriented X3, Cooperative, No acute distress HEENT: Atraumatic, PERRLA, EOMI, Mucous membrane moist/pink Respiratory: Clear to auscultation, Normal air movement Cardiovascular: Regular rate, Normal S1, Normal S2, No murmurs, no chest wall tenderness Abdominal: Normal bowel sounds, Soft, No tenderness, No hepatospenomegaly, No masses Extremities: No clubbing, No cyanosis, No edema, Normal pulses, No tenderness/swelling Skin: No rashes, No breakdown, No significant lesion Neuro: Normal gait, Normal speech, Strength at 5/5 X4 ext, Normal tone, Sensation intact, grossly intact cranial nerves. Psych/Mental Status: Mental status NL, Mood NL laboratory and microbiology Laboratory Tests 07/22/24 05:35 Test 07/22/24 05:35 Range/Units Serum Glucose 232 H 74-106 mg/dL Labs and/or images reviewed: Labs reviewed by me, Image(s) reviewed by me Problem List/Assessment/Plan Problem List/Assessment/Plan Assessment and plan # Intractable abdominal pain # Possible small-bowel obstruction - CT abdomen pelvis without contrast revealed findings suggesting either gastroenteritis or developing small bowel obstruction. - Gastrograffin small bowel series demonstrated nonspecific bowel gas pattern, contrast is identified in the colon by 1 hours represents a normal small bowel transit time - Surgery is on board - CBC showed leukocytosis - NPO - NG tube with low intermittent suction. - IV normal saline at 100 mL/hours - IV ceftriaxone 1 g daily and IV metronidazole 500 mg t.i.d. - IV morphine 2 mg q.4 p.r.n. - IV ondansetron 4 mg Q 8 p.r.n. # Type 2 diabetes mellitus, HbA1C 6.0 % - Mild sliding scale of insulin # Hyperbilirubinemia without transaminitis - Monitor CMP # PUD prophylaxis - Protonix 40 mg IV daily # DVT prophylaxis - Lovenox 40 mg sc daily Goal of care discussed with the patient for more than 20 minutes full code Plan discussed with Dr. Hampton Plan discussed with: Patient, Other My Orders My Orders Orders - SIMONE COX Procedure Category Date Status Time Urinalysis LAB 07/22/24 Uncollected 08:00 Thyroid Stimulating LAB 07/22/24 In Process Hormone 08:00 Communication Order ORDERS 07/22/24 Transmitted 08:00 Metronidazole PHA 07/22/24 In Process 500mg/100ml (Flagyl 14:00 Glucose Blood PHA 07/22/24 In Process (Accu-Chek Comfort 11:30 Insulin R (Human) PHA 07/22/24 In Process (Insulin R) 11:30 Dextrose 50% Syringe PHA 07/22/24 In Process 10:45 Date of Service: Jul 22, 2024 Billing Provider: DORITA GRACE MD Common Visit Codes: [id number] INP/OBS CARE(HIGH) SIMONE COX Jul 22, 2024 14:59 DORITA GRACE MD Jul 23, 2024 00:34
[2024-07-22 15:05] VITALS: BP 117/88; PULSE 84; PULSE 86; RESP 17; TEMP 97.6; O2SAT 95
[2024-07-22] MEDS: metroNIDAZOLE 500MG/100ML 100 ML IV SCH (16:16)
[2024-07-22 17:00] VITALS: BP 136/87; PULSE 93; RESP 17; TEMP 97.2; O2SAT 94
[2024-07-22] MEDS ORDERED: LABETALOL HCL 20 MG/4 ML VL IV PRN (18:45)
[2024-07-22 21:00] VITALS: BP 140/88; PULSE 90; RESP 17; TEMP 99.8; O2SAT 93
[2024-07-23 01:00] VITALS: BP 125/80; PULSE 83; RESP 17; TEMP 99; O2SAT 95
[2024-07-23 05:00] VITALS: BP 138/89; PULSE 76; RESP 17; TEMP 98.6; O2SAT 96
[2024-07-23 05:55] LABS: Basophils # (auto) 0 10 ^3/uL (0-0.2); Basophils % (auto) 0.3 % (0.0-2.0); Eosinophils # (auto) 0.1 10 ^3/uL (0-0.8); Eosinophils % (auto) 2.8 % (0.0-7.0); Hematocrit 42.8 % (41.0-53.0); Lymphocytes # (auto) 0.5 10 ^3/uL (0.4-5.4); Lymphocytes % (auto) 10.9 % (10.0-50.0); Mean Corpuscular Hemoglobin 31.4 pg (28.0-32.0); Mean Corpuscular Volume 89.5 fL (80.0-100.0); Monocytes # (auto) 0.5 10 ^3/uL (0-1.3); Monocytes % (auto) 11.2 % (0.0-12.0); Neutrophils # (auto) 3.6 10 ^3/uL (1.6-8.6); Neutrophils % (auto) 74.8 % (37.0-80.0); Platelet Count (auto) 164 10^3/uL (140-450); Red Blood Cells 4.79 10^6/uL (4.5-5.90); Red Cell Distribution Width 13.5 % (11.8-14.3); White Blood Cell 4.8 10^3/uL (4.4-10.8)
[2024-07-23 06:23] LABS: Alanine Aminotransferase 23 U/L (7-40); Albumin 4.2 g/dL (3.2-4.8); Alkaline Phosphatase 49 U/L (46-116); Anion Gap 9 (5-15); Aspartate Aminotransferase 17 U/L (13-40); BUN/Creatinine Ratio 21.5 (10.0-20.0); Blood Urea Nitrogen 20 mg/dL (9-23); Calcium 8.7 mg/dL (8.7-10.4); Carbon Dioxide 23 mmol/L (20-31); Potassium 3.6 mmol/L (3.5-5.1)
[2024-07-23 06:24] LABS: Total Protein 6.4 g/dL (5.7-8.2)
[2024-07-23 06:26] LABS: Bilirubin, Total 1.3 mg/dL (0.2-1.0); Chloride 113 mmol/L (98-107); Glucose 159 mg/dL (74-106); Sodium 145 mmol/L (136-145)
[2024-07-23 08:00] VITALS: O2SAT 97
[2024-07-23] MEDS: ENOXAPARIN SOD 40 MG/0.4 ML SYRINGE SC SCH (09:03)
[2024-07-23] MEDS: LISINOPRIL 5 MG TAB PO SCH (09:03)
--- NOTE | 2024-07-23 14:37 | DVHPN2 ---
Progress Note Date Seen: Jul 23, 2024 Medical Necessity Reason Pt with a Central, PICC or Fol: No Objective vital signs Vital Sign Date Time Temp Pulse Resp B/P (MAP) Pulse Ox O2 Delivery O2 Flow Rate FiO2 07/23/24 09:03 145/89 07/23/24 08:00 97 Room Air* 0 21 07/23/24 05:00 98.6 76 17 98.6 Total Intake and Output 07/22/24 07/22/24 07/23/24 15:00 23:00 07:00 Intake Total 1050 ml 0 ml Balance 1050 ml 0 ml medications Current Medications Medications Dose Ordered Sig/Malachi Route Start Time Stop Time Status Last Admin Dose Admin Sodium Chloride 1,000 ml @ 100 mls/hr Q10H IV 07/21/24 22:30 07/23/24 04:54 100 MLS/HR Pantoprazole Sodium 40 mg DAILY IV 07/21/24 23:00 07/23/24 09:02 40 MG Ondansetron HCl 4 mg Q4HP PRN IV 07/21/24 23:00 07/22/24 09:52 4 MG Morphine Sulfate 2 mg Q4HPRN PRN IV 07/21/24 23:00 07/22/24 09:52 2 MG Ceftriaxone Sodium 50 ml @ 100 mls/hr DAILY@09 IV 07/22/24 05:00 07/23/24 09:04 100 MLS/HR Metronidazole 100 ml @ 100 mls/hr Q8HR IV 07/22/24 14:00 07/23/24 13:51 100 MLS/HR Diagnostic Test (Pha) 1 strip ACHS 07/22/24 11:30 07/23/24 11:39 1 STRIP Insulin Human Regular ACHS SC 07/22/24 11:30 07/23/24 11:42 3 UNITS Dextrose 50 ml UD PRN IV 07/22/24 10:45 Enoxaparin Sodium 40 mg DAILY SC 07/23/24 10:00 07/23/24 09:03 40 MG Lisinopril 10 mg DAILY PO 07/23/24 10:00 07/23/24 09:03 10 MG Labetalol HCl 5 mg Q2HPRN PRN IV 07/22/24 18:45 laboratory and microbiology Laboratory Tests 07/23/24 05:32 Test 07/23/24 05:32 Range/Units Serum Glucose 159 H 74-106 mg/dL Problem List/Assessment/Plan Problem List/Assessment/Plan 07/23/24 normal small bowel follow up series, several bowel movements, no indication for surgical intervention Plan discussed with: ROSHAN Zeng MD Jul 23, 2024 14:37
[2024-07-23 14:56] VITALS: BP 145/89; PULSE 75; RESP 18; TEMP 37; O2SAT 96
--- NOTE | 2024-07-23 17:28 | DVHDSRES ---
Discharge Summary Date of Admission Resident Creating Document: SIMONE COX RESIDENT Jul 21, 2024 at 22:59 Date of Discharge: Jul 23, 2024 Admitting Diagnosis Intractable abdominal pain Possible small bowel obstruction Wounds: No wound was present Labs/Diagnostic Data: Laboratory Results Test 07/23/24 11:17 07/23/24 05:32 07/22/24 12:01 07/22/24 05:35 POC Glucose 176 mg/dl (70-106) White Blood Count 4.8 10^3/uL (4.4-10.8) Red Blood Count 4.79 10^6/uL (4.5-5.90) Hemoglobin 15.0 g/dL (13.5-17.5) Hematocrit 42.8 % (41.0-53.0) Mean Corpuscular Volume 89.5 fL (80.0-100.0) Mean Corpuscular Hemoglobin 31.4 pg (28.0-32.0) Mean Corpuscular Hemoglobin Concent 35.0 g/dL (32.0-36.0) Red Cell Distribution Width 13.5 % (11.8-14.3) Platelet Count 164 10^3/uL (140-450) Mean Platelet Volume 7.5 fL (6.9-10.8) Neutrophils (%) (Auto) 74.8 % (37.0-80.0) Lymphocytes (%) (Auto) 10.9 % (10.0-50.0) Monocytes (%) (Auto) 11.2 % (0.0-12.0) Eosinophils (%) (Auto) 2.8 % (0.0-7.0) Basophils (%) (Auto) 0.3 % (0.0-2.0) Neutrophils # (Auto) 3.6 10 ^3/uL (1.6-8.6) Lymphocytes # (Auto) 0.5 10 ^3/uL (0.4-5.4) Monocytes # (Auto) 0.5 10 ^3/uL (0-1.3) Eosinophils # (Auto) 0.1 10 ^3/uL (0-0.8) Basophils # (Auto) 0 10 ^3/uL (0-0.2) Nucleated Red Blood Cells 0.0 % Sodium Level 145 mmol/L (136-145) Potassium Level 3.6 mmol/L (3.5-5.1) Chloride Level 113 mmol/L (98-107) Carbon Dioxide Level 23 mmol/L (20-31) Anion Gap 9 (5-15) Blood Urea Nitrogen 20 mg/dL (9-23) Creatinine 0.93 mg/dL (0.700-1.30) Glomerular Filtration Rate Calc 98 mL/min (>90) BUN/Creatinine Ratio 21.5 (10.0-20.0) Serum Glucose 159 mg/dL (74-106) Calcium Level 8.7 mg/dL (8.7-10.4) Total Bilirubin 1.3 mg/dL (0.2-1.0) Aspartate Amino Transferase (AST) 17 U/L (13-40) Alanine Aminotransferase (ALT) 23 U/L (7-40) Alkaline Phosphatase 49 U/L (46-116) Total Protein 6.4 g/dL (5.7-8.2) Albumin 4.2 g/dL (3.2-4.8) Urine Opiates Screen Pos (NEGATIVE) Urine Fentanyl Screen Neg (NEGATIVE) Urine Barbiturates Screen Neg (NEGATIVE) Urine Phencyclidine Screen Neg (NEGATIVE) Urine Amphetamines Screen Neg (NEGATIVE) Urine Benzodiazepines Screen Neg (NEGATIVE) Urine Cocaine Screen Neg (NEGATIVE) Urine Cannabinoids Screen Neg (NEGATIVE) Hemoglobin A1c 6.0 % A1C (<5.7) Thyroid Stimulating Hormone (TSH) 1.20 uIU/mL (0.55-4.78) Other Laboratory Tests 07/23/24 05:32 Brief Hx & Hospital Course: This is a 54 year old male with past medical history of hypertension, type 2 diabetes mellitus presented to the ED with a chief complaint of abdominal pain since 4:00 a.m. prior to this admission. According to the patient he 1st came to the ER with the abdominal pain and was prescribed Zofran but when he went home the symptom progressively getting worse that prompted this visit. Abdominal pain is colicky in nature, 8/10 constant and diffuse throughout the abdomen without any associated aggravating or relieving factors and not associated with nausea or vomiting and his last bowel movement was 1 day ago before coming to the hospital and was normal. Hospital course: Initial CT abdomen pelvis without contrast revealed findings suggesting either gastroenteritis or developing small bowel obstruction. surgery was on board and recommended normal small bowel follow up series, several bowel movements, no indication for surgical intervention. Patient was treated with NPO, NG tube with low intermittent suction, IV normal saline at 100 mL/hours, IV ceftriaxone 1 g daily and IV metronidazole 500 mg t.i.d., IV morphine 2 mg q.4 p.r.n., IV ondansetron 4 mg Q 8 p.r.n. and mild sliding scale of insulin. Patient had 2 episodes to bowel movement yesterday and felt better, no abdominal pain and no more bloating and nausea. Today patient was able to tolerate oral liquid diet and NG tube removed. Discharge plan was discussed with the patient and all question were answered. Patient is being discharged to home Discharge diagnosis: # Intractable abdominal pain # Ruled out possible small-bowel obstruction # Type 2 diabetes mellitus, HbA1C 6.0% # Hyperbilirubinemia without transaminitis Discharge Plan: Disposition: Home Follow up : [facility] clinic in 1 week. Consults/Reason for consult Surgery was consulted Operations or Procedures Exam: CT CT AB PEL WO CON-NO ORAL OR IV History: Abdominal pain Comparison Study: None available at time of dictation. TECHNIQUE: Multidetector CT of the abdomen was performed from lung bases to pubic symphysis. Imaging was performed without IV contrast. Axial, coronal and sagittal multiplanar reformats were obtained from the axial data set by the technologist. Radiation Dose Information: CT Dose: CTDI volume is 12.11 mGy. Dose-length product is 664.33 mGy*cm FINDINGS: Evaluation of solid organs is limited due to lack of intravenous contrast use. Findings: Lung Bases: No acute or significant lung base finding. Normal heart size. No pleural or pericardial effusion. Liver: The liver is normal in size. No focal lesions. Gallbladder and Biliary Tree: Unremarkable Spleen: Unremarkable Pancreas: The pancreas is grossly normal in appearance. Adrenal Glands: Unremarkable Kidneys: Kidneys are grossly normal without calculi or hydronephrosis. Bladder: Grossly unremarkable for degree of distention. Bowel: The stomach is fluid-filled.. Small bowel and colon are normal in caliber and distribution. Small bowel is mildly distended with fluid measuring 323.7 cm. Findings may represent gastroenteritis or developing small bowel obstruction. The appendix is not visualized; however, no secondary findings of acute appendicitis identified. Ascites: Absent Lymphadenopathy: No mesenteric, retroperitoneal or periportal lymphadenopathy. Abdominal Wall and Mesentery: Unremarkable. Vasculature: The visualized abdominal aorta is normal in size and caliber. Evaluation of abdominal and pelvic vessels is limited due to lack of intravenous contrast. Pelvic Organs: Unremarkable Musculoskeletal: No aggressive focal bony lesions, acute fractures or dislocation. Soft tissues: Unremarkable IMPRESSION: 1. Findings suggesting either gastroenteritis or developing small bowel obstruction. 2. No calcified gallstones 3. No nephrolithiasis or hydronephrosis. 4. No abnormally distended colon. Procedure: XY SMALL BOWEL SERIES-W GASTROGRA Reason for study/Clinical History: SBO Comparison Study: None available at time of dictation. Technique: Single contrast small bowel series performed. FINDINGS/IMPRESSION: Initial controls project engineer view of the abdomen and pelvis appears demonstrates nonspecific bowel-gas pattern. Contrast is identified within the colon by 1 hour. This represents a normal small bowel transit time. Condition at Discharge: Stable Final Diagnosis/Problems List # Intractable abdominal pain likely due to gastritis # Acute gastroenteritis # SIRS due to above # Ruled out possible small-bowel obstruction # Hypertensive urgency # Type 2 diabetes mellitus, HbA1C 6.0% # Hyperbilirubinemia without transaminitis Discharge Disposition: Home Discharge Instruct/Medications Diet: Regular Diet comment: Full liquid diet for 1 week Activity: No Restrictions, As Tolerated Follow Up/Referral: Follow up with DC clinic in 1 week Follow up with outpatient surgery in 1 to 2 week. Discharge Statement: "Patient was advised to return to the ER or call 911 if any headaches, dizziness, shortness of breath, chest pain, abdominal pain, bleeding, fevers, or worsening of medical condition. Patient was counseled about treatment plan, medications, possible side effects, patientverbalized understanding. All questions were answered to the best of my ability. This discharge took greater then 30 minutes in planning, reviewing documentation, counseling the patient, and discussing with other team members." ASSESSMENT ASSESSMENT Assessment # Intractable abdominal pain # Ruled out possible small-bowel obstruction # Type 2 diabetes mellitus, HbA1C 6.0% # Hyperbilirubinemia without transaminitis SIMONE COX RESIDENT Jul 23, 2024 17:27
== END 2024-07-23 16:15 | disposition home or self-care (01) | DRG 241 ==
LOC: ER 20:33 → OVERFLOW 22:59 → WEST WING 07-22 13:52
PROVIDERS: ADMIT Student in an Organized Health Care Education/Training Program; ATTEND Student in an Organized Health Care Education/Training Program
PROC: 0D9670Z Drainage of Stomach with Drainage Device, Via Natural or Artificial Opening (ICD-10-PCS; principal; 2024-07-22)
DX: K29.70 Gastritis, unspecified, without bleeding (principal); R65.10 Systemic inflammatory response syndrome (SIRS) of non-infectious origin without acute organ dysfunction; A04.9 Bacterial intestinal infection, unspecified; A08.4 Viral intestinal infection, unspecified; I16.0 Hypertensive urgency; E11.9 Type 2 diabetes mellitus without complications; E80.6 Other disorders of bilirubin metabolism; I10 Essential (primary) hypertension; Z83.3 Family history of diabetes mellitus
CPT/HCPCS: 36415; 71045; 74176; 74250; 80053; 80307; 82962; 83036; 84443; 85025; 93005; G0378; J1815; J2405; J2470; J3490